=== PATIENT | female | born 1980 | race Caucasian/White ===

== ENCOUNTER 2016-02-20 09:39 | Emergency (ER) | payer OTHER ==
[~2016-02-20] VITALS: Ht 152.4 cm; Wt 66.0 kg
[~2016-02-20 09:39] MED LIST: ACETAMINOPHEN-120 ML PO; ATARAX,VISTARIL25 MG PO; ATARAX,VISTARIL50 MG PO; CREON DR 12,001 EAC1 PO; DILAUDID2 MG PO; KEFLEX500 MG PO; PHENERGAN25 MG PR; PROTONIX20 MG PO; ULTRAM50 MG PO; ZITHROMAX Z-PA250 MG PO; ZOFRAN ODT4 MG PO; anxiety med
[2016-02-20] MEDS ORDERED: MOTRIN800 MG PO (12:37)
[2016-02-20] MEDS ORDERED: NORCO 7.5/321 TABLET PO (12:37)
[2016-02-20 12:57] VITALS: BP 119/71
== END 2016-02-20 12:57 | disposition home or self-care (01) ==
LOC: EME 09:39
DX: S30.0XXA Contusion of lower back and pelvis, initial encounter (principal); S86.011A Strain of right Achilles tendon, initial encounter; W00.1XXA Fall from stairs and steps due to ice and snow, initial encounter
CPT/HCPCS: 72100; 72220; 99281; 99284

== ENCOUNTER 2016-03-08 10:20 | Emergency (ER) | payer OTHER ==
[~2016-03-08] VITALS: Ht 165.1 cm; Wt 63.8 kg
[~2016-03-08 10:20] MED LIST changes: +MOTRIN800 MG PO; +NORCO 7.5/321 TABLET PO
[2016-03-08] MEDS ORDERED: PROMETHAZINE HC25 M1 PO ×2 (11:11→15:07)
[2016-03-08 11:21] LABS: HEMATOCRIT 39.4 % (36.0-46.0); MCH 27.2 PG (29.0-34.0); MCHC 32.7 G/DL (30.0-36.0); MCV 82.9 FL (83-99); PLATELET COUNT 220 K/uL (156-360); RBC DIS.WIDTH-CV 12.9 % (11.8-14.6); RBC DIS.WIDTH-SD 38.4 % (39-53); RED BLOOD COUNT 4.75 M/uL (3.80-5.20); WHITE BLOOD COUNT 3.9 K/uL (4.1-10.2)
[2016-03-08 11:29] LABS: CHLORIDE 109 mEq/L (99-109); POTASSIUM 4.3 mEq/L (3.7-5.4); SODIUM 140 mEq/L (136-147)
[2016-03-08 11:31] LABS: GLUCOSE 96 mg/dL (70-99)
[2016-03-08 11:32] LABS: ANION GAP 10 MEQ/L (2-14)
[2016-03-08 11:33] LABS: TOTAL BILIRUBIN 0.7 mg/dL (0.0-1.0)
[2016-03-08 11:35] LABS: ALKALINE PHOSPHATASE 134 IU/L (3-129); GFR ESTIMATE (CALCULATED) > 59 mL/min/
[2016-03-08 11:36] LABS: UREA NITROGEN (BUN) 15 mg/dL (9-23)
[2016-03-08 11:38] LABS: LIPASE 165 U/L (1.0-51.0)
[2016-03-08 11:49] LABS: QUANTITATIVE HCG < 4.0 MIU/ML
[2016-03-08 12:29] LABS: ADD MIUA? NO; BILIRUBIN NEGATIVE; BLOOD NEGATIVE; COLOR YELLOW ((YELLOW)); GLUCOSE (STRIP) NEGATIVE; KETONES NEGATIVE; LEUKOCYTES NEGATIVE; NITRITE NEGATIVE; PH, URINE 6.5 (5-8); PROTEIN (STRIP) NEGATIVE
[2016-03-08] MEDS ORDERED: BENTYL20 MG PO (15:07)
[2016-03-08] MEDS ORDERED: PHENERGAN25 MG PR (15:07)
[2016-03-08 15:32] VITALS: BP 134/96
[2016-03-09 10:26] LABS: HBSG INDEX 0.16; HPCA INDEX 0.25
[2016-03-09 10:28] LABS: ANTI-HEPATITIS A VIRUS (IGM) Nonreactive; ANTI-HEPATITIS B CORE (IGM) Nonreactive; HAV INDEX 0.27; HBC IgM INDEX 0.17
== END 2016-03-08 15:33 | disposition home or self-care (01) ==
LOC: RME 10:20 → EME 10:20 → RME 15:33
PROVIDERS: Physician Assistant
DX: R11.0 Nausea (principal); R10.84 Generalized abdominal pain; K31.84 Gastroparesis; Z97.8 Presence of other specified devices; Z88.6 Allergy status to analgesic agent
CPT/HCPCS: 74000; 74177; 80053; 80074; 81003; 83690; 84702; 85027; 99281; 99285; J0500; J0780; J1200; J1885; J2550; J3360; J7030

== ENCOUNTER 2016-03-27 06:51 | Emergency (ER) | payer OTHER ==
[~2016-03-27] VITALS: Ht 165.1 cm; Wt 61.1 kg
[~2016-03-27 06:51] MED LIST changes: +BENTYL20 MG PO; +PROMETHAZINE HC25 M1 PO
[2016-03-27 08:03] LABS: AMPHETAMINE NEGATIVE (500 ng/mL); COCAINE NEGATIVE (150 ng/mL); METHAMPHETAMINE NEGATIVE (500 ng/mL); OPIATES (MORPHINE) NEGATIVE (100 ng/mL); PHENCYCLIDINE NEGATIVE (25 ng/mL); THC CANNABINOIDS NEGATIVE (50 ng/mL)
[2016-03-27 08:04] LABS: ADD MEDTOX COMMENT Y; BARBITURATES NEGATIVE (200 ng/mL); BENZODIAZEPINES PRESUMPTIVE POSITIVE (150 ng/mL); INTERNAL CONTROLS VALID? YES; METHADONE NEGATIVE (200 ng/mL); OXYCODONE NEGATIVE (100 ng/mL); PROPOXYPHENE NEGATIVE (300 ng/mL); TRICYCLIC ANTIDEPRESSANTS NEGATIVE (300 ng/mL)
[2016-03-27 08:08] LABS: EOSINOPHIL (%) 0.2 % (0-5); HEMATOCRIT 37.8 % (36.0-46.0); LYMPHOCYTE COUNT 1.7 K/uL (1.0-2.8); MCH 27.2 PG (29.0-34.0); MCHC 33.1 G/DL (30.0-36.0); MCV 82.2 FL (83-99); MEAN PLAT.VOLUME 12.2 uM^3 (9.5-12.4); MONOCYTE (%) 7.8 % (3-12); MONOCYTE COUNT 0.3 K/uL (0-0.8); NEUTROPHIL (%) 50.8 % (45-76); NEUTROPHIL COUNT 2.1 K/uL (1.8-6.4); PLATELET COUNT 179 K/uL (156-360); RBC DIS.WIDTH-CV 12.8 % (11.8-14.6); RBC DIS.WIDTH-SD 37.7 % (39-53); WHITE BLOOD COUNT 4.1 K/uL (4.1-10.2)
[2016-03-27 08:24] LABS: ANION GAP 6 MEQ/L (2-14); CHLORIDE 108 MEQ/L (99-109); POTASSIUM 3.6 MEQ/L (3.7-5.4); SAMPLE HEMOLYSIS CHECK 0; SAMPLE ICTERIC CHECK 0; SAMPLE LIPEMIA CHECK 0; SODIUM 139 MEQ/L (136-147)
[2016-03-27 08:37] LABS: BENZODIAZEPINES QUANT VALUE 0 NG/ML
[2016-03-27 08:41] LABS: ALKALINE PHOSPHATASE 88 IU/L (3-129); GFR ESTIMATE (CALCULATED) > 59 mL/min/; GLUCOSE 94 mg/dL (70-99); LIPASE 83 U/L (1.0-51.0); SERUM ETHYL ALCOHOL < 10 mg/dL; UREA NITROGEN (BUN) 16 mg/dL (9-23)
[2016-03-27 08:41] LABS: BENZODIAZEPINES, URINE SCREEN Negative (200 ng/mL)
[2016-03-27] MEDS ORDERED: ZOFRAN ODT4 MG PO (10:07)
[2016-03-27] MEDS ORDERED: AUGMENTIN875 MG PO (10:09)
[2016-03-27 10:12] VITALS: BP 119/54
== END 2016-03-27 10:21 | disposition home or self-care (01) ==
LOC: EME 06:51
PROVIDERS: Emergency Medicine
DX: F41.9 Anxiety disorder, unspecified (principal); F41.0 Panic disorder [episodic paroxysmal anxiety]; R59.0 Localized enlarged lymph nodes; Z88.8 Allergy status to other drugs, medicaments and biological substances; Z88.6 Allergy status to analgesic agent; Z88.5 Allergy status to narcotic agent; K31.84 Gastroparesis
CPT/HCPCS: 80053; 83690; 84999; 85025; 90839; 99281; 99284; G0480

== ENCOUNTER 2016-05-23 13:10 | Emergency (ER) | payer OTHER ==
[~2016-05-23] VITALS: Ht 165.1 cm; Wt 63.4 kg
[~2016-05-23 13:10] MED LIST changes: +AUGMENTIN875 MG PO
[2016-05-23] MEDS ORDERED: ULTRAM50 MG PO (15:03)
[2016-05-23] MEDS ORDERED: FLEXERIL10 MG PO (15:03)
[2016-05-23 15:30] VITALS: BP 119/79
== END 2016-05-23 15:49 | disposition home or self-care (01) ==
LOC: EME 13:10
DX: M54.32 Sciatica, left side (principal); R59.0 Localized enlarged lymph nodes
CPT/HCPCS: 76536; 99281; 99283; J1885

== ENCOUNTER 2016-07-20 07:49 | Emergency (ER) | payer OTHER ==
[~2016-07-20] VITALS: Ht 160 cm; Wt 62.2 kg
[~2016-07-20 07:49] MED LIST changes: +FLEXERIL10 MG PO
[2016-07-20 08:45] LABS: HEMATOCRIT 41.1 % (36.0-46.0); MCH 27.2 PG (29.0-34.0); MCHC 31.9 G/DL (30.0-36.0); MCV 85.3 FL (83-99); MEAN PLAT.VOLUME 11.7 uM^3 (9.5-12.4); PLATELET COUNT 236 K/uL (156-360); RBC DIS.WIDTH-CV 12.8 % (11.8-14.6); RBC DIS.WIDTH-SD 39.9 % (39-53); RED BLOOD COUNT 4.82 M/uL (3.80-5.20); WHITE BLOOD COUNT 5.5 K/uL (4.1-10.2)
[2016-07-20 09:05] LABS: CHLORIDE 109 mEq/L (99-109); POTASSIUM 3.9 mEq/L (3.7-5.4); SODIUM 142 mEq/L (136-147)
[2016-07-20 09:08] LABS: GLUCOSE 88 mg/dL (70-99)
[2016-07-20 09:09] LABS: ANION GAP 9 MEQ/L (2-14); TOTAL BILIRUBIN 0.7 mg/dL (0.0-1.0)
[2016-07-20 09:11] LABS: ALKALINE PHOSPHATASE 94 IU/L (3-129); GFR ESTIMATE (CALCULATED) > 59 mL/min/
[2016-07-20 09:12] LABS: UREA NITROGEN (BUN) 15 mg/dL (9-23)
[2016-07-20 09:22] LABS: QUANTITATIVE HCG < 4.0 MIU/ML
[2016-07-20] MEDS ORDERED: PERCOCET 5/31 TABLET PO (12:33)
[2016-07-20 12:37] LABS: ADD MIUA? NO; BILIRUBIN NEGATIVE; BLOOD NEGATIVE; COLOR YELLOW ((YELLOW)); GLUCOSE (STRIP) NEGATIVE; KETONES NEGATIVE; LEUKOCYTES NEGATIVE; NITRITE NEGATIVE; PROTEIN (STRIP) NEGATIVE; SPECIFIC GRAVITY 1.014 (1.000-1.030); UCUL ADDED? NO
[2016-07-20 13:04] VITALS: BP 125/79
== END 2016-07-20 13:11 | disposition home or self-care (01) ==
LOC: EME 07:49
DX: K31.84 Gastroparesis (principal); R51 Headache; Z88.6 Allergy status to analgesic agent; Z88.8 Allergy status to other drugs, medicaments and biological substances
CPT/HCPCS: 70450; 74177; 80053; 81003; 84702; 85027; 99281; 99285; J2270; J2405; J7030

== ENCOUNTER 2017-01-10 17:59 | Emergency (ER) | payer OTHER ==
[~2017-01-10] VITALS: Ht 162.6 cm; Wt 73.2 kg
[~2017-01-10 17:59] MED LIST changes: +PERCOCET 5/31 TABLET PO
[2017-01-10 18:22] LABS: ADD MIUA? YES; BILIRUBIN NEGATIVE; BLOOD NEGATIVE; COLOR YELLOW ((YELLOW)); GLUCOSE (STRIP) NEGATIVE; KETONES NEGATIVE; LEUKOCYTES NEGATIVE; NITRITE NEGATIVE; PROTEIN (STRIP) NEGATIVE; SPECIFIC GRAVITY 1.018 (1.000-1.030)
[2017-01-10 18:27] LABS: BACTERIA NONE SEEN /HPF; EPITHELIAL CELLS 1+ /HPF; MUCUS TRACE /LPF; RED BLOOD CELLS 0-5 /HPF (0-5); UCUL ADDED? NO; WHITE BLOOD CELLS 0-5 /HPF (0-5)
[2017-01-10 18:31] LABS: HEMATOCRIT 41.8 % (36.0-46.0); MCH 28.2 PG (29.0-34.0); MCHC 32.3 G/DL (30.0-36.0); MCV 87.3 FL (83-99); MEAN PLAT.VOLUME 11.1 uM^3 (9.5-12.4); PLATELET COUNT 245 K/uL (156-360); RBC DIS.WIDTH-SD 41.4 % (39-53); RED BLOOD COUNT 4.79 M/uL (3.80-5.20); WHITE BLOOD COUNT 5.7 K/uL (4.1-10.2)
[2017-01-10 18:42] LABS: CHLORIDE 106 mEq/L (99-109); POTASSIUM 3.4 mEq/L (3.7-5.4); SODIUM 136 mEq/L (136-147)
[2017-01-10 18:44] LABS: GLUCOSE 99 mg/dL (70-99)
[2017-01-10 18:46] LABS: ANION GAP 6 MEQ/L (2-14); TOTAL BILIRUBIN 0.6 mg/dL (0.0-1.0)
[2017-01-10 18:48] LABS: ALKALINE PHOSPHATASE 115 IU/L (3-129); GFR ESTIMATE (CALCULATED) > 59 mL/min/
[2017-01-10 18:49] LABS: UREA NITROGEN (BUN) 13 mg/dL (9-23)
[2017-01-10 18:57] LABS: QUANTITATIVE HCG < 4.0 MIU/ML
[2017-01-10] MEDS ORDERED: BENTYL10 MG PO (20:34)
[2017-01-10] MEDS ORDERED: ZOFRAN ODT4 MG PO (20:34)
[2017-01-10] MEDS ORDERED: PHENERGAN1.25 MG/ML PO (21:07)
[2017-01-10 21:25] VITALS: BP 130/64
== END 2017-01-10 21:26 | disposition home or self-care (01) ==
LOC: EME 17:59
DX: K59.00 Constipation, unspecified (principal); J06.9 Acute upper respiratory infection, unspecified; R10.84 Generalized abdominal pain; Z88.8 Allergy status to other drugs, medicaments and biological substances
CPT/HCPCS: 74177; 80053; 81003; 84702; 85027; 99281; 99285; J1885; J2405; J2550; J7030

== ENCOUNTER 2017-01-21 12:40 | Emergency (ER) | payer OTHER ==
[~2017-01-21] VITALS: Ht 154.9 cm; Wt 71.7 kg
[~2017-01-21 12:40] MED LIST changes: +BENTYL10 MG PO; +PHENERGAN1.25 MG/ML PO
[2017-01-21 13:35] LABS: HEMATOCRIT 42.9 % (36.0-46.0); MCH 28.1 PG (29.0-34.0); MCHC 33.3 G/DL (30.0-36.0); MCV 84.3 FL (83-99); MEAN PLAT.VOLUME 11.3 uM^3 (9.5-12.4); PLATELET COUNT 293 K/uL (156-360); RBC DIS.WIDTH-CV 12.9 % (11.8-14.6); RBC DIS.WIDTH-SD 39.7 % (39-53); RED BLOOD COUNT 5.09 M/uL (3.80-5.20); WHITE BLOOD COUNT 8.7 K/uL (4.1-10.2)
[2017-01-21 13:43] LABS: CHLORIDE 106 mEq/L (99-109); POTASSIUM 4.3 mEq/L (3.7-5.4); SODIUM 138 mEq/L (136-147)
[2017-01-21 13:46] LABS: ANION GAP 12 MEQ/L (2-14)
[2017-01-21 13:47] LABS: TOTAL BILIRUBIN 0.4 mg/dL (0.0-1.0)
[2017-01-21 14:08] LABS: GLUCOSE 95 mg/dL (70-99)
[2017-01-21 14:12] LABS: ALKALINE PHOSPHATASE 100 IU/L (3-129); GFR ESTIMATE (CALCULATED) > 59 mL/min/
[2017-01-21 14:13] LABS: UREA NITROGEN (BUN) 17 mg/dL (9-23)
[2017-01-21 14:52] LABS: QUANTITATIVE HCG < 4.0 MIU/ML
[2017-01-21] MEDS ORDERED: BENTYL20 MG PO (14:54)
[2017-01-21] MEDS ORDERED: PHENERGAN25 MG PR (14:54)
[2017-01-21] MEDS ORDERED: ZOFRAN ODT4 MG PO (14:54)
[2017-01-21 15:16] LABS: ADD MIUA? YES; BILIRUBIN NEGATIVE; BLOOD NEGATIVE; COLOR YELLOW ((YELLOW)); GLUCOSE (STRIP) NEGATIVE; KETONES 5; LEUKOCYTES TRACE; NITRITE NEGATIVE; PROTEIN (STRIP) NEGATIVE; SPECIFIC GRAVITY 1.017 (1.000-1.030); UROBILINOGEN 0.2 MG/DL (0.2-1.0)
[2017-01-21 15:19] LABS: BACTERIA NONE SEEN /HPF; EPITHELIAL CELLS RARE /HPF; MUCUS TRACE /LPF; RED BLOOD CELLS 0-5 /HPF (0-5); UCUL ADDED? NO; WHITE BLOOD CELLS 0-5 /HPF (0-5)
[2017-01-21] MEDS ORDERED: ANTIVERT25 MG PO (15:58)
[2017-01-21 16:08] VITALS: BP 147/89
== END 2017-01-21 16:10 | disposition home or self-care (01) ==
LOC: EME 12:40 → RME 12:40
PROVIDERS: Nurse Practitioner Family
DX: R11.2 Nausea with vomiting, unspecified (principal); K31.84 Gastroparesis; R51 Headache; R42 Dizziness and giddiness; H92.09 Otalgia, unspecified ear; J34.89 Other specified disorders of nose and nasal sinuses; Z90.49 Acquired absence of other specified parts of digestive tract; Z98.51 Tubal ligation status
CPT/HCPCS: 74000; 80053; 81003; 84702; 84702 90; 85027; 99281; 99284; J2405; J7030

== ENCOUNTER 2017-03-02 05:25 | Day surgery (SDC) | payer OTHER ==
[~2017-03-02] VITALS: Ht 160 cm; Wt 69.8 kg
[~2017-03-02 05:25] MED LIST changes: +ANTIVERT25 MG PO
[2017-03-02 05:58] VITALS: BP 117/69
[2017-03-02] MEDS ORDERED: ENDOCET 5-3251 EACH PO (08:06)
[2017-03-02 10:25] VITALS: BP 97/51
[2017-03-02 10:55] VITALS: BP 114/67
== END 2017-03-02 11:25 | disposition home or self-care (01) ==
LOC: SDC 05:25
PROC: 0UBC8ZX Excision of Cervix, Via Natural or Artificial Opening Endoscopic, Diagnostic (ICD-10-PCS; principal; 2017-03-02)
DX: N87.0 Mild cervical dysplasia (principal); F41.9 Anxiety disorder, unspecified; K21.9 Gastro-esophageal reflux disease without esophagitis
CPT/HCPCS: 88305; 88307; J1170; J1885; J2250; J2405; J2550; J3010

== ENCOUNTER 2017-05-17 08:51 | Emergency (ER) | payer SELFPAY ==
[~2017-05-17] VITALS: Ht 165.1 cm; Wt 76.1 kg
[~2017-05-17 08:51] MED LIST changes: +ENDOCET 5-3251 EACH PO
[2017-05-17 09:30] LABS: HEMATOCRIT 38.2 % (36.0-46.0); HEMOGLOBIN 12.4 G/DL (11.9-15.5); MCH 27.6 PG (29.0-34.0); MCHC 32.5 G/DL (30.0-36.0); MCV 85.1 FL (83-99); PLATELET COUNT 269 K/uL (156-360); RBC DIS.WIDTH-CV 13.2 % (11.8-14.6); RED BLOOD COUNT 4.49 M/uL (3.80-5.20); WHITE BLOOD COUNT 5.3 K/uL (4.1-10.2)
[2017-05-17 09:43] LABS: ALBUMIN 3.8 g/dL (3.2-4.8); CHLORIDE 109 mEq/L (99-109); POTASSIUM 4.1 mEq/L (3.7-5.4); SODIUM 142 mEq/L (136-147)
[2017-05-17 09:45] LABS: GLUCOSE 102 mg/dL (70-99); TOTAL PROTEIN 7.2 g/dL (6.4-8.3)
[2017-05-17 09:47] LABS: TOTAL BILIRUBIN 0.6 mg/dL (0.0-1.0)
[2017-05-17 09:49] LABS: ALKALINE PHOSPHATASE 86 IU/L (3-129); CREATININE 0.8 mg/dL (0.6-1.3); GFR ESTIMATE (CALCULATED) > 59 mL/min/
[2017-05-17 09:50] LABS: UREA NITROGEN (BUN) 14 mg/dL (9-23)
[2017-05-17 09:51] LABS: AST (GOT) 18 IU/L (2-34)
[2017-05-17 09:52] LABS: ALT (GPT) 13 IU/L (3-49)
[2017-05-17 10:01] LABS: QUANTITATIVE HCG < 4.0 MIU/ML
[2017-05-17 10:54] LABS: APPEARANCE CLEAR ((CLEAR)); BILIRUBIN NEGATIVE; BLOOD SMALL; COLOR YELLOW ((YELLOW)); GLUCOSE (STRIP) NEGATIVE; KETONES NEGATIVE; LEUKOCYTES NEGATIVE; NITRITE NEGATIVE; PROTEIN (STRIP) NEGATIVE; SPECIFIC GRAVITY 1.013 (1.000-1.030); UROBILINOGEN 0.2 MG/DL (0.2-1.0)
[2017-05-17 11:34] LABS: BACTERIA RARE /HPF; EPITHELIAL CELLS RARE /HPF; MUCUS TRACE /LPF; RED BLOOD CELLS 0-5 /HPF (0-5); UCUL ADDED? NO; WHITE BLOOD CELLS 0-5 /HPF (0-5)
[2017-05-17 11:36] LABS: LIPASE 65 U/L (1.0-51.0)
[2017-05-17] MEDS ORDERED: PROMETHAZINE HC25 M1 PO (12:40)
[2017-05-17 13:06] VITALS: BP 120/83
== END 2017-05-17 13:05 | disposition home or self-care (01) ==
LOC: EME 08:51
DX: K31.84 Gastroparesis (principal); F41.9 Anxiety disorder, unspecified; Z90.49 Acquired absence of other specified parts of digestive tract; Z88.5 Allergy status to narcotic agent; Z88.6 Allergy status to analgesic agent; Z88.8 Allergy status to other drugs, medicaments and biological substances
CPT/HCPCS: 80053; 81003; 83690; 84702; 85027; 99281; 99284; J1200; J1630; J2405; J7030

== ENCOUNTER 2017-07-02 20:17 | Emergency (ER) | payer OTHER ==
[~2017-07-02] VITALS: Ht 165.1 cm; Wt 78.4 kg
[2017-07-02 23:16] LABS: HEMATOCRIT 35.9 % (36.0-46.0); HEMOGLOBIN 11.9 G/DL (11.9-15.5); MCH 28.4 PG (29.0-34.0); MCHC 33.1 G/DL (30.0-36.0); MCV 85.7 FL (83-99); PLATELET COUNT 243 K/uL (156-360); RBC DIS.WIDTH-CV 12.9 % (11.8-14.6); RBC DIS.WIDTH-SD 40.1 % (39-53); RED BLOOD COUNT 4.19 M/uL (3.80-5.20); WHITE BLOOD COUNT 7.3 K/uL (4.1-10.2)
[2017-07-02 23:28] LABS: CHLORIDE 111 mEq/L (99-109); POTASSIUM 3.8 mEq/L (3.7-5.4); SODIUM 140 mEq/L (136-147)
[2017-07-02 23:30] LABS: GLUCOSE 94 mg/dL (70-99)
[2017-07-02 23:33] LABS: CREATININE 0.8 mg/dL (0.6-1.3); GFR ESTIMATE (CALCULATED) > 59 mL/min/
[2017-07-02 23:34] LABS: UREA NITROGEN (BUN) 13 mg/dL (9-23)
[2017-07-02 23:36] LABS: CREATINE KINASE 64 IU/L (1-294)
[2017-07-03] MEDS ORDERED: VALIUM5 MG PO (00:32)
[2017-07-03] MEDS ORDERED: ULTRACET1 TABLET PO (00:32)
[2017-07-03] MEDS ORDERED: INDOCIN50 MG PO (00:32)
[2017-07-03 01:02] VITALS: BP 132/82
[2017-07-03 07:31] LABS: THYROTROPIN (TSH) 1.9 MIU/L (0.4-5.5)
[2017-07-03 10:40] LABS: LYME DISEASE SEROLOGY SCREEN NEGATIVE (NEGATIVE)
== END 2017-07-03 01:03 | disposition home or self-care (01) ==
LOC: EME 20:17
PROVIDERS: Physician Assistant
DX: M54.42 Lumbago with sciatica, left side (principal); F41.9 Anxiety disorder, unspecified; Z88.5 Allergy status to narcotic agent; Z88.6 Allergy status to analgesic agent
CPT/HCPCS: 72100; 80048; 82550; 83735; 84443; 85027; 86618; 99281; 99284; J1885

== ENCOUNTER 2017-09-02 08:28 | Emergency (ER) | payer OTHER ==
[~2017-09-02] VITALS: Ht 162.6 cm; Wt 72.5 kg
[~2017-09-02 08:28] MED LIST changes: +INDOCIN50 MG PO; +ULTRACET1 TABLET PO; +VALIUM5 MG PO
[2017-09-02 09:20] LABS: BASOPHIL (%) 0.4 % (0-1); EOSINOPHIL (%) 0.5 % (0-5); HEMATOCRIT 39.7 % (36.0-46.0); HEMOGLOBIN 13.3 G/DL (11.9-15.5); IMMATURE GRANULOCYTE (%) 0.2 % (0.0-0.7); LYMPHOCYTE (%) 38.4 % (15-42); LYMPHOCYTE COUNT 2.2 K/uL (1.0-2.8); MCH 27.8 PG (29.0-34.0); MCHC 33.5 G/DL (30.0-36.0); MCV 82.9 FL (83-99); MONOCYTE (%) 8.1 % (3-12); MONOCYTE COUNT 0.5 K/uL (0-0.8); NEUTROPHIL (%) 52.4 % (45-76); PLATELET COUNT 218 K/uL (156-360); RBC DIS.WIDTH-CV 12.8 % (11.8-14.6); RBC DIS.WIDTH-SD 38.6 % (39-53); RED BLOOD COUNT 4.79 M/uL (3.80-5.20); WHITE BLOOD COUNT 5.7 K/uL (4.1-10.2)
[2017-09-02 09:28] LABS: ALBUMIN 3.9 g/dL (3.2-4.8)
[2017-09-02 09:29] LABS: CHLORIDE 108 mEq/L (99-109); SODIUM 139 mEq/L (136-147)
[2017-09-02 09:31] LABS: GLUCOSE 92 mg/dL (70-99); TOTAL PROTEIN 7.5 g/dL (6.4-8.3)
[2017-09-02 09:33] LABS: TOTAL BILIRUBIN 0.9 mg/dL (0.0-1.0)
[2017-09-02 09:34] LABS: ALKALINE PHOSPHATASE 87 IU/L (3-129)
[2017-09-02 09:35] LABS: CREATININE 0.8 mg/dL (0.6-1.3); GFR ESTIMATE (CALCULATED) > 59 mL/min/
[2017-09-02 09:36] LABS: AST (GOT) 24 IU/L (2-34); UREA NITROGEN (BUN) 14 mg/dL (9-23)
[2017-09-02 09:37] LABS: ALT (GPT) 20 IU/L (3-49)
[2017-09-02 09:38] LABS: LIPASE 114 U/L (1.0-51.0)
[2017-09-02] MEDS ORDERED: PERCOCET 5/31 TABLET PO (13:54)
[2017-09-02] MEDS ORDERED: PROMETHAZINE HC25 M1 PO (13:54)
[2017-09-02 14:41] VITALS: BP 115/73
== END 2017-09-02 14:42 | disposition home or self-care (01) ==
LOC: EME 08:28
PROVIDERS: Emergency Medicine
DX: K31.84 Gastroparesis (principal); F41.9 Anxiety disorder, unspecified; Z87.19 Personal history of other diseases of the digestive system; Z95.0 Presence of cardiac pacemaker; Z98.51 Tubal ligation status; Z90.49 Acquired absence of other specified parts of digestive tract; Z88.6 Allergy status to analgesic agent; Z88.5 Allergy status to narcotic agent; Z88.8 Allergy status to other drugs, medicaments and biological substances
CPT/HCPCS: 80053; 83690; 85025; 99281; 99284; J1885; J2270; J2405; J7030; Q0169